=== PATIENT | female | born 1960 | race Caucasian/White ===

== ENCOUNTER → 2016-12-10 | Outpatient (CLI) | payer MEDICARE, MEDICAID ==
--- NOTE | 2016-12-10 11:08 | RADIOLOGY REPORT (SQ) ---
EXAM DESCRIPTION: CHEST PA/LATERAL COMPLETED DATE/TIME: 12/10/2016 10:52 am REASON FOR STUDY: OTH SYMPTOMS AND SIGNS INVOLVING THE CIRC AND RESP SYSTEMS R09.89 OTH SYMPTOMS AN D SIGNS INVOLVING THE CIRC AND RESP SY COMPARISON: 12/07/2015 NUMBER OF VIEWS: Two view. TECHNIQUE: Frontal and lateral radiographic views of the chest acquired. LIMITATIONS: None. FINDINGS: LUNGS AND PLEURA: Low lung volumes. No opacities, masses or pneumothorax. No pleural eff usion. MEDIASTINUM AND HILAR STRUCTURES: No masses. No contour abnormalities. HEART AND VASCULAR STRUCTURES: Heart normal in size and contour. No evidence for failure. BONES: No acute findings. HARDWARE: None in the chest. OTHER: No other significant finding. IMPRESSION: LOW LUNG VOLUMES. No acute findings. No significant change since 12/07/2015. . TECHNICAL DOCUMENTATION: JOB ID: [id number] [employer]- All Rights Reserved
== END ==
LOC: OD 10:34
PROVIDERS: ATTEND Family Medicine
DX: R09.89 Other specified symptoms and signs involving the circulatory and respiratory systems (principal)
CPT/HCPCS: 71020

== ENCOUNTER → 2017-09-14 | Outpatient (CLI) | payer MEDICARE, MEDICAID ==
[2017-09-14 14:58] LABS: ABSOLUTE EOSINOPHILS # (AUTO) 0.1 10^3/uL (0.0-0.6); ABSOLUTE LYMPHOCYTES (AUTO) 2.1 10^3/uL (0.5-4.7); ABSOLUTE MONOCYTES (AUTO) 0.7 10^3/uL (0.1-1.4); BASOPHILS % (AUTO) 0.2 % (0-2); EOSINOPHILS % (AUTO) 0.8 % (0-6); HEMATOCRIT 38.8 % (36.0-47.0); HEMOGLOBIN 13.6 g/dL (12.0-15.5); LYMPHOCYTES % (AUTO) 30.1 % (13-45); MEAN CORPUSCULAR HEMOGLOBIN 30.8 pg (27.0-33.4); MEAN CORPUSCULAR VOLUME 88 fl (80-97); MONOCYTES % (AUTO) 9.8 % (3-13); PLATELET COUNT 220 10^3/uL (150-450); RED CELL DISTRIBUTION WIDTH 13.2 % (11.5-14.0); SEGMENTED NEUTROPHILS % (AUTO) 59.1 % (42-78); TOTAL CELLS COUNTED % (AUTO) 100 %; WHITE BLOOD COUNT 6.8 10^3/uL (4.0-10.5)
[2017-09-14 15:40] LABS: ANION GAP 10 (5-19); BLOOD UREA NITROGEN 13 mg/dL (7-20); CALCIUM 9.6 mg/dL (8.4-10.2); CARBON DIOXIDE 30 mmol/L (22-30); CHLORIDE 104 mmol/L (98-107); GLUCOSE 99 mg/dL (75-110); POTASSIUM 4.5 mmol/L (3.6-5.0); SODIUM 143.6 mmol/L (137-145)
--- NOTE | 2017-09-14 15:44 | RADIOLOGY REPORT (SQ) ---
EXAM DESCRIPTION: CHEST 2 VIEWS COMPLETED DATE/TIME: 09/14/2017 3:17 pm REASON FOR STUDY: COUGH, FEBRILE ILLNESS, ANOXIC BRAIN INJURY G93.1 ANOXIC BRAIN DAMAGE, NOT ELSEWH ERE CLASSIFIED R05 COUGH R50.9 FEVER, UNSPECIFIED COMPARISON: 2015. NUMBER OF VIEWS: Two view. TECHNIQUE: Frontal and lateral radiographic views of the chest acquired. LIMITATIONS: None. FINDINGS: LUNGS AND PLEURA: Low lung volumes. No opacities, masses or pneumothorax. No pleural eff usion. MEDIASTINUM AND HILAR STRUCTURES: No masses. No contour abnormalities. HEART AND VASCULAR STRUCTURES: Heart normal in size and contour. No evidence for failure. BONES: No acute findings. HARDWARE: None in the chest. OTHER: No other significant finding. IMPRESSION: LOW LUNG VOLUMES. NO SIGNIFICANT RADIOGRAPHIC FINDING IN THE CHEST. TECHNICAL DOCUMENTATION: JOB ID: [id number] [employer]- All Rights Reserved Reading location - IP/workstation name: [email or web address]
== END ==
LOC: LAB 14:43
PROVIDERS: ATTEND Emergency Medicine
DX: G93.1 Anoxic brain damage, not elsewhere classified (principal); R05 Cough; R50.9 Fever, unspecified
CPT/HCPCS: 36415; 71046; 80048; 85025

== ENCOUNTER 2017-11-07 20:12 | Emergency (ER) | payer MEDICARE, MEDICAID ==
[2017-11-07 20:50] VITALS: BP 106/70
--- NOTE | 2017-11-07 21:06 | RADIOLOGY REPORT (SQ) ---
EXAM DESCRIPTION: CHEST 2 VIEWS COMPLETED DATE/TIME: 11/07/2017 8:55 pm REASON FOR STUDY: cough, small amt blood COMPARISON: 09/14/2017 EXAM PARAMETERS: NUMBER OF VIEWS: two views TECHNIQUE: Digital Frontal and Lateral radiographic views of the chest acquired. RADIATION DOSE: NA LIMITATIONS: none FINDINGS: LUNGS AND PLEURA: No opacities, masses or pneumothorax. No pleural effusion. MEDIASTINUM AND HILAR STRUCTURES: No masses or contour abnormalities. HEART AND VASCULAR STRUCTURES: Heart normal size. No evidence for failure. BONES: No acute findings. HARDWARE: None in the chest. OTHER: No other significant finding. IMPRESSION: NO ACUTE RADIOGRAPHIC FINDING IN THE CHEST. TECHNICAL DOCUMENTATION: JOB ID: [id number] [employer]- All Rights Reserved Reading location - IP/workstation name: [email or web address]
--- NOTE | 2017-11-07 21:36 | ER Document Report ---
ED General - General Mode of Arrival: Wheelchair Information source: Patient TRAVEL OUTSIDE OF THE [place]. IN LAST 30 DAYS: No <OMERO ERVIN - Last Filed: 11/07/17 21:27> <LALA MAHARAJ - Last Filed: 11/07/17 23:15> - General Chief Complaint: Cough Stated Complaint: COUGHING UP BLOOD Time Seen by Provider: 11/07/17 21:23 Notes: 57 y.o female with HTN, type 2 DM and a PSHx of PEG tube placement presents to the ED with a cough of onset yesterday. Relative at bedside reports that today the pt started coughing blood while she was with her home health nurse who reported that it looked like a small clot. He denies any known fevers or any other sx. Pt also has a PMHx of anoxic brain injury in 2013 after a suicide attempt. ( OMERO ERVIN) - Related Data Allergies/Adverse Reactions: epinephrine [Epinephrine] Allergy (Verified 01/15/16 14:21) "throat closes up" Penicillins Allergy (Verified 01/15/16 14:20) Sulfa (Sulfonamide Antibiotics) Allergy (Verified 04/22/14 11:31) Past Medical History - General Information source: Patient - Social History Smoking Status: Never Smoker Chew tobacco use (# tins/day): No Frequency of alcohol use: None Drug Abuse: None Family History: Reviewed & Not Pertinent Patient has suicidal ideation: No Patient has homicidal ideation: No - Past Medical History Cardiac Medical History: Reports: Hx Hypertension Endocrine Medical History: Reports: Hx Diabetes Mellitus Type 2 Renal/ Medical History: Denies: Hx Peritoneal Dialysis Past Surgical History: Reports: Hx Abdominal Surgery - Immunizations Hx Diphtheria, Pertussis, Tetanus Vaccination: Yes <OMERO ERVIN - Last Filed: 11/07/17 21:27> Review of Systems - Review of Systems Constitutional: See HPI. denies: Fever EENT: No symptoms reported Cardiovascular: No symptoms reported Respiratory: See HPI, Cough, Other - blood in cough Gastrointestinal: No symptoms reported Genitourinary: No symptoms reported Female Genitourinary: No symptoms reported Musculoskeletal: No symptoms reported Skin: No symptoms reported Hematologic/Lymphatic: No symptoms reported Neurological/Psychological: No symptoms reported -: Yes All other systems reviewed and negative <OMERO ERVIN - Last Filed: 11/07/17 21:27> Physical Exam <OMERO ERVIN - Last Filed: 11/07/17 21:27> <LALA MAHARAJ - Last Filed: 11/07/17 23:15> - Vital signs Vitals: Pulse Resp BP Pulse Ox 67 19 106/70 95 11/07/17 20:23 11/07/17 20:23 11/07/17 20:23 11/07/17 20:23 - Notes Notes: Physical Exam: General: Alert, appears well. HEENT: Normocephalic. Atraumatic. PERRL. Extraocular movements intact. Oropharynx clear. Neck: Supple. Non-tender. Respiratory: No respiratory distress. Equal breath sounds bilaterally. Some rhonchi auscultated. Cardiovascular: Regular rate and rhythm. Abdominal: Normal Inspection. Non-tender. No distension. Normal Bowel Sounds. Back: Non-tender. No deformity or step off. Extremities: Moves all four extremities. Upper extremities: extension contractures at the fingers. Normal ROM. Lower extremities: Extension of lower extremities. No edema. Normal ROM. Neurological: Able to follow commands. could breath on command but was not able to cough well on command. Psychological: Normal affect. Normal Mood. Skin: Warm. Dry. Normal color. (OMERO ERVIN) Course - Laboratory Result Diagrams: 11/07/17 22:10 11/07/17 22:10 - Diagnostic Test Radiology reviewed: Image reviewed, Reports reviewed - Chest x-ray does not show any acute process. <LALA MAHARAJ - Last Filed: 11/07/17 23:15> - Vital Signs Vital signs: Temp Pulse Resp BP Pulse Ox 67 19 106/70 95 11/07/17 20:23 11/07/17 20:23 11/07/17 20:23 11/07/17 20:23 - Laboratory Laboratory results interpreted by me: 11/07/17 22:10 Creatinine 0.46 L AST 53 H ALT 90 H Discharge <OMEOR ERVIN - Last Filed: 11/07/17 21:27> <LALA MAHARAJ - Last Filed: 11/07/17 23:15> - Discharge Clinical Impression: Hemoptysis, Bronchitis Condition: Stable Disposition: HOME, SELF-CARE Additional Instructions: Bronchitis You have acute bronchitis. This disease is an infection or inflammation of the air passageways in your lungs. Symptoms usually include cough, low grade fever, shortness of breath, and wheezing. The cough usually persists for a couple of weeks. Most cases of bronchitis get better without antibiotics. We prescribe antibiotics when we believe bacteria are damaging your airways, or if there's high risk the bronchitis will worsen into pneumonia. Increase your fluid intake. A cool mist humidifier may make your lungs more comfortable. An expectorant (cough medicine that loosens phlegm) can help. Recovery from bronchitis can be somewhat slow, but you should see improvement within a day or two. Repeated episodes of bronchitis may result in lung damage -- for example, chronic bronchitis, recurrent pneumonias, or emphysema. Call the doctor if you develop increasing fever, shortness of breath, chest pain, bloody sputum, or otherwise worsen. If you have not improved at all after several days, contact the physician. Hemoptysis: Hemoptysis (coughing up blood) can occur with many different diseases. Most commonly, it's due to an infection such as bronchitis. Although alarming, the presence of blood in the phlegm doesn't change the treatment of bronchitis or pneumonia. The physician has evaluated you to see if there is evidence of an underlying problem requiring further evaluation. If he has recommended further tests, you should follow up as instructed. Hemoptysis without an identifiable cause can be due to tumors or hidden infections. Return for a recheck if the blood increases greatly in amount, or if you develop shortness of breath, high fever, severe chest pain, or other alarming new symptoms. Give the Zithromax as prescribed once daily for the next 2 days. Try Robitussin-DM to help suppress your cough. Follow up with your doctor if not improving. RETURN TO THE EMERGENCY ROOM IF ANY NEW OR WORSENING SYMPTOMS. Prescriptions: Azithromycin [Zithromax 200 mg/5 mL Susp] 12.5 ml PEG DAILY #25 ml Referrals: LENA YAÑEZ DO [Primary Care Provider] - Follow up as needed Scribe Attestation: 11/07/17 21:54 I personally performed the services described in the documentation, reviewed and edited the documentation which was dictated to the scribe in my presence, and it accurately records my words and actions. (LALA MAHARAJ) Scribe Documentation - Scribe Written by Jose Francisco:: Jose Francisco Jett [id number] acting as scribe for :: Lex <OMERO ERVIN - Last Filed: 11/07/17 21:27>
[2017-11-07 22:31] LABS: ABSOLUTE EOSINOPHILS # (AUTO) 0.1 10^3/uL (0.0-0.6); ABSOLUTE LYMPHOCYTES (AUTO) 2.3 10^3/uL (0.5-4.7); ABSOLUTE MONOCYTES (AUTO) 0.4 10^3/uL (0.1-1.4); ABSOLUTE NEUT (AUTO) 3.3 10^3/uL (1.7-8.2); BASOPHILS % (AUTO) 0.3 % (0-2); EOSINOPHILS % (AUTO) 2.3 % (0-6); HEMATOCRIT 41.7 % (36.0-47.0); HEMOGLOBIN 14.5 g/dL (12.0-15.5); LYMPHOCYTES % (AUTO) 37.2 % (13-45); MEAN CORPUSCULAR HEMOGLOBIN 31.1 pg (27.0-33.4); MEAN CORPUSCULAR HGB CONC 34.9 g/dL (32.0-36.0); MEAN CORPUSCULAR VOLUME 89 fl (80-97); PLATELET COUNT 302 10^3/uL (150-450); RED BLOOD COUNT 4.68 10^6/uL (3.72-5.28); RED CELL DISTRIBUTION WIDTH 13.2 % (11.5-14.0); SEGMENTED NEUTROPHILS % (AUTO) 53.2 % (42-78); TOTAL CELLS COUNTED % (AUTO) 100 %; WHITE BLOOD COUNT 6.3 10^3/uL (4.0-10.5)
[2017-11-07 22:50] LABS: ALANINE AMINOTRANSFERASE 90 U/L (9-52); ALBUMIN 3.8 g/dL (3.5-5.0); ALKALINE PHOSPHATASE 87 U/L (38-126); ANION GAP 9 (5-19); ASPARTATE AMINO TRANSFERASE 53 U/L (14-36); BILIRUBIN,DIRECT 0.2 mg/dL (0.0-0.4); BILIRUBIN,TOTAL 0.5 mg/dL (0.2-1.3); BLOOD UREA NITROGEN 16 mg/dL (7-20); CALCIUM 9.6 mg/dL (8.4-10.2); CARBON DIOXIDE 30 mmol/L (22-30); CHLORIDE 102 mmol/L (98-107); GLUCOSE 87 mg/dL (75-110); POTASSIUM 4.3 mmol/L (3.6-5.0); SODIUM 140.8 mmol/L (137-145); TOTAL PROTEIN 6.7 g/dL (6.3-8.2)
[2017-11-07] MEDS ORDERED: AZITHROMYCIN 200 MG/5 ML SUSP 30 ML (ER DISP) PO SCH ×2 (23:00→23:06)
== END 2017-11-07 23:40 | disposition home or self-care (01) ==
LOC: ER 20:12
DX: J40 Bronchitis, not specified as acute or chronic (principal); R04.2 Hemoptysis; I10 Essential (primary) hypertension; E11.9 Type 2 diabetes mellitus without complications; G93.1 Anoxic brain damage, not elsewhere classified; Z88.8 Allergy status to other drugs, medicaments and biological substances; Z88.0 Allergy status to penicillin; Z88.2 Allergy status to sulfonamides
CPT/HCPCS: 99284; 36415; 85025; 80053; 71046; J3490

== ENCOUNTER → 2017-11-14 | Outpatient (CLI) | payer MEDICARE, MEDICAID ==
--- NOTE | 2017-11-14 10:48 | WOMENS IMAGING REPORT ---
EXAM DESCRIPTION: BILAT SCREENING MAMMO W/CAD COMPLETED DATE/TIME: 11/14/2017 9:59 am REASON FOR STUDY: ROUTINE SCREENING MAMMOGRAM Z12.31 Z12.31 ENCNTR SCREEN MAMMOGRAM FOR MALIGNANT N EOPLASM OF ALEXANDER COMPARISON: 2012, 2015 TECHNIQUE: Standard mediolateral oblique views of each breast recorded using digital acquisition. M LO views could not be obtained due to comorbidities. LIMITATIONS: See above. FINDINGS: No masses, calcifications or architectural distortion. No areas of suspicion. Read with the assistance of CAD. [facility] R2 [employer] Version 1.3 .[facility] Imaging - R2 Cenova Version 1.3 .[facility] Imaging - R2 Cenova Version 2.4 .[facility] [place] Cenova Version 2.4 .[facility] - R2 [employer] Version 9.2 IMPRESSION: NORMAL MAMMOGRAM. BIRADS 1. BREAST DENSITY: b. There are scattered areas of fibroglandular density. BIRAD: 1 NEGATIVE RECOMMENDATION: ROUTINE SCREENING COMMENT: The patient has been notified of the results by letter per MQSA requirements. Additional no tification policies are in place for contacting patient with suspicious or incomplete findings. Quality ID #[id number]: [employer] [place] [employer] recommends an annual screening mammogram for women aged 40 years or over. This facility utilizes a reminder system to ensure that all patients receive reminder letters, and/or direct phone calls for appointments. This includes reminders for routine scr eening mammograms, diagnostic mammograms, or other Breast Imaging Interventions when appropriate. Th is patient will be placed in the appropriate reminder system. The [employer] [place] [employer] (ACR) has developed recommendations for screening MRI of the breast s in certain patient populations, to be used in conjunction with mammography. Breast MRI surveillanc e may be appropriate for women with more than 20% lifetime risk of developing breast cancer as deter mined by genetic testing, significant family history of the disease, or history of mantle radiation f or Hodgkins Disease. ACR Practice Guidelines 2008. TECHNICAL DOCUMENTATION: FINDING NUMBER: (1) ASSESSMENT: (1) JOB ID: [id number] [employer]- All Rights Reserved Reading location - IP/workstation name: [email or web address]
== END ==
LOC: WI 09:40
PROVIDERS: ATTEND Family Medicine
DX: Z12.31 Encounter for screening mammogram for malignant neoplasm of breast (principal)
CPT/HCPCS: 77067

== ENCOUNTER → 2018-01-31 | Outpatient (CLI) | payer MEDICARE | LOC: LAB 14:54 | PROVIDERS: ATTEND Nurse Practitioner Family | DX: R35.0 Frequency of micturition (principal) | CPT/HCPCS: 87086; 87088; 87186 ==

== ENCOUNTER → 2018-11-25 | Outpatient (CLI) | payer MEDICAID, MEDICARE ==
--- NOTE | 2018-11-25 17:03 | WOMENS IMAGING REPORT ---
EXAM DESCRIPTION: U/S BREAST UNILATERAL, COMPL COMPLETED DATE/TIME: 11/25/2018 1:40 pm REASON FOR STUDY: Z12.31 ENCOUNTER FOR SCREENING MAMMOGRAM FOR MALIGNANT NEOPLASM OF BREAST Z12.31 ENCNTR SCREEN MAMMOGRAM FOR MALIGNANT NEOPLASM OF ALEXANDER COMPARISON: None TECHNIQUE: Static and Realtime grayscale interrogation of the entire right and left breast(s) acquir ed. Selected color doppler/spectral images saved to PACS. LIMITATIONS: None. FINDINGS: Masses:No cystic or solid masses identified Architecture:No alteration of normal morphology. No skin thickening. No edema. Other: None. IMPRESSION: No suspicious findings detected by ultrasound. BIRAD: 1 Negative. RECOMMENDATION: RECOMMENDED FOLLOW-UP: Yearly screening is appropriate. Note: Screening ultrasound does not completely replace standard screening mammography. These modalities are complementary, not fully interchangeable. COMMENT: PATIENT NOTIFIED BY LETTER. [employer], [place] [employer], and [place] [employer] recommend an annual screening mammogram for women aged 40 years or over. Each patient will recei ve a reminder prior to the anniversary date of her mammogram. TECHNICAL DOCUMENTATION: FINDING NUMBER: (1) ASSESSMENT: (1) JOB ID: [id number] [employer]- All Rights Reserved Reading location - IP/workstation name: [email or web address]
--- NOTE | 2018-11-25 17:03 | WOMENS IMAGING REPORT ---
EXAM DESCRIPTION: U/S BREAST UNILATERAL, COMPL COMPLETED DATE/TIME: 11/25/2018 1:40 pm REASON FOR STUDY: Z12.31 ENCOUNTER FOR SCREENING MAMMOGRAM FOR MALIGNANT NEOPLASM OF BREAST Z12.31 ENCNTR SCREEN MAMMOGRAM FOR MALIGNANT NEOPLASM OF ALEXANDER COMPARISON: None TECHNIQUE: Static and Realtime grayscale interrogation of the entire right and left breast(s) acquir ed. Selected color doppler/spectral images saved to PACS. LIMITATIONS: None. FINDINGS: Masses:No cystic or solid masses identified Architecture:No alteration of normal morphology. No skin thickening. No edema. Other: None. IMPRESSION: No suspicious findings detected by ultrasound. BIRAD: 1 Negative. RECOMMENDATION: RECOMMENDED FOLLOW-UP: Yearly screening is appropriate. Note: Screening ultrasound does not completely replace standard screening mammography. These modalities are complementary, not fully interchangeable. COMMENT: PATIENT NOTIFIED BY LETTER. [employer], [place] [employer], and [place] [employer] recommend an annual screening mammogram for women aged 40 years or over. Each patient will recei ve a reminder prior to the anniversary date of her mammogram. TECHNICAL DOCUMENTATION: FINDING NUMBER: (1) ASSESSMENT: (1) JOB ID: [id number] [employer]- All Rights Reserved Reading location - IP/workstation name: [email or web address]
== END ==
LOC: WI 13:13
PROVIDERS: ATTEND Family Medicine
DX: Z12.31 Encounter for screening mammogram for malignant neoplasm of breast (principal)
CPT/HCPCS: 76641

== ENCOUNTER 2019-04-26 18:52 | Emergency (ER) | payer MEDICARE, MEDICAID ==
[2019-04-26 19:26] VITALS: BP 121/80
--- NOTE | 2019-04-26 19:46 | ER Document Report ---
ED Medical Screen (RME) - General Chief Complaint: Cough Stated Complaint: CONGESTION,COUGH,FEVER Time Seen by Provider: 04/26/19 19:39 Primary Care Provider: MARYAM KEYES MD [Primary Care Provider] - Follow up as needed Notes: HPI: History is obtained from the family member, patient with history of anoxic brain injury. Began having cough and fever over the last 2 to 3 days. Patient was exposed to other caregivers who had upper respiratory symptoms. Patient did get a flu shot this year. Patient feeds with a G-tube. No vomiting I have greeted and performed a rapid initial assessment of this patient. A comprehensive ED assessment and evaluation of the patient, analysis of test results and completion of the medical decision making process will be conducted by additional ED providers PHYSICAL EXAMINATION: GENERAL: Chronically ill-appearing, well-nourished and in no acute distress. HEAD: Atraumatic, normocephalic. EYES: sclera anicteric, conjunctiva are normal. ENT: Moist mucous membranes. NECK: Normal range of motion LUNGS: Normal work of breathing, lung sounds clear to auscultation HEART: 2+ radial pulses bilaterally, regular rate and rhythm ABD: limited by positioning for exam in triage. G-tube present EXTREMITIES: no pitting or edema. No cyanosis. NEUROLOGICAL: Nonverbal, does not follow commands PSYCH: Nonverbal SKIN: Warm, Dry, normal turgor, no rashes or lesions noted. TRAVEL OUTSIDE OF THE [place] IN LAST 30 DAYS: No - Related Data Allergies/Adverse Reactions: epinephrine [Epinephrine] Allergy (Verified 04/26/19 19:38) "throat closes up" Penicillins Allergy (Verified 04/26/19 19:38) Sulfa (Sulfonamide Antibiotics) Allergy (Verified 04/26/19 19:38) Home Medications: Resteril. Prozac 20. Baclofen 5mg BID Past Medical History - Past Medical History Cardiac Medical History: Reports: Hx Hypertension Denies: Hx Heart Attack Pulmonary Medical History: Denies: Hx Asthma, Hx Bronchitis, Hx COPD, Hx Pneumonia Neurological Medical History: Denies: Hx Seizures Endocrine Medical History: Reports: Hx Diabetes Mellitus Type 2 Renal/ Medical History: Denies: Hx Peritoneal Dialysis Musculoskeltal Medical History: Denies Hx Arthritis Infectious Medical History: Past Surgical History: Reports: Hx Abdominal Surgery. Denies: Hx Hysterectomy - Immunizations Hx Diphtheria, Pertussis, Tetanus Vaccination: Yes Physical Exam - Vital signs Vitals: Temp Pulse Resp BP Pulse Ox 99.5 F 89 22 H 121/80 95 04/26/19 19:25 04/26/19 19:25 04/26/19 19:25 04/26/19 19:25 04/26/19 19:25 Course - Vital Signs Vital signs: Temp Pulse Resp BP Pulse Ox 99.5 F 89 22 H 121/80 95 04/26/19 19:25 04/26/19 19:25 04/26/19 19:25 04/26/19 19:25 04/26/19 19:25 Doctor's Discharge - Discharge Referrals: MARYAM KEYES MD [Primary Care Provider] - Follow up as needed
== END 2019-04-26 19:48 | disposition left against medical advice (07) ==
LOC: ER 18:52
DX: R05 Cough (principal); R50.9 Fever, unspecified; I10 Essential (primary) hypertension; E11.9 Type 2 diabetes mellitus without complications; Z88.0 Allergy status to penicillin; Z88.2 Allergy status to sulfonamides; Z93.1 Gastrostomy status
CPT/HCPCS: 99281

== ENCOUNTER 2019-04-27 17:18 | Emergency (ER) | payer MEDICAID, MEDICARE ==
[2019-04-27 17:45] VITALS: BP 120/59
--- NOTE | 2019-04-27 18:06 | ER Document Report ---
ED Medical Screen (RME) - General Chief Complaint: Cough Stated Complaint: COUGH/CONGESTION/FEVER Time Seen by Provider: 04/27/19 17:58 Primary Care Provider: MARYAM KEYES MD [Primary Care Provider] - Follow up as needed Notes: HPI: History is obtained from the . A 59-year-old female with history of anoxic brain injury brought for continued coughing with several episodes of posttussive vomiting today. Patient feeds with a J-tube secondary to the anoxic brain injury. Had fever upper respiratory symptoms over the last 2 to 3 days. Patient was evaluated last night but they were unable to stay for the evaluation so they returned today with continued symptoms. Patient recently had exposure to caregivers who had upper respiratory symptoms or flu I have greeted and performed a rapid initial assessment of this patient. A comprehensive ED assessment and evaluation of the patient, analysis of test results and completion of the medical decision making process will be conducted by additional ED providers PHYSICAL EXAMINATION: GENERAL: Chronically ill -appearing, well-nourished and in no acute distress. HEAD: Atraumatic, normocephalic. EYES: sclera anicteric, conjunctiva are normal. ENT: Moist mucous membranes. NECK: Nontender LUNGS: Normal work of breathing, lung sounds clear to auscultation HEART: 2+ radial pulses bilaterally, regular rate and rhythm ABD: limited by positioning for exam in triage. G-tube present EXTREMITIES: no pitting or edema. No cyanosis. NEUROLOGICAL: Nonverbal PSYCH: Nonverbal SKIN: Warm, Dry, normal turgor, no rashes or lesions noted. TRAVEL OUTSIDE OF THE [place] IN LAST 30 DAYS: No - Related Data Allergies/Adverse Reactions: epinephrine [Epinephrine] Allergy (Verified 04/26/19 19:38) "throat closes up" Penicillins Allergy (Verified 04/26/19 19:38) Sulfa (Sulfonamide Antibiotics) Allergy (Verified 04/26/19 19:38) Past Medical History - Past Medical History Cardiac Medical History: Reports: Hx Hypertension Denies: Hx Heart Attack Pulmonary Medical History: Denies: Hx Asthma, Hx Bronchitis, Hx COPD, Hx Pneumonia Neurological Medical History: Denies: Hx Seizures Endocrine Medical History: Reports: Hx Diabetes Mellitus Type 2 Renal/ Medical History: Denies: Hx Peritoneal Dialysis Musculoskeltal Medical History: Denies Hx Arthritis Infectious Medical History: Past Surgical History: Reports: Hx Abdominal Surgery. Denies: Hx Hysterectomy - Immunizations Hx Diphtheria, Pertussis, Tetanus Vaccination: Yes Physical Exam - Vital signs Vitals: Temp Pulse Resp BP Pulse Ox 98.2 F 57 L 16 120/59 L 100 04/27/19 17:43 04/27/19 17:43 04/27/19 17:43 04/27/19 17:43 04/27/19 17:43 Course - Vital Signs Vital signs: Temp Pulse Resp BP Pulse Ox 98.2 F 57 L 16 120/59 L 100 04/27/19 17:43 04/27/19 17:43 04/27/19 17:43 04/27/19 17:43 04/27/19 17:43 Doctor's Discharge - Discharge Referrals: MARYAM KEYES MD [Primary Care Provider] - Follow up as needed
--- NOTE | 2019-04-27 19:29 | RADIOLOGY REPORT (SQ) ---
EXAM DESCRIPTION: CHEST SINGLE VIEW COMPLETED DATE/TIME: 04/27/2019 7:10 pm REASON FOR STUDY: cough COMPARISON: Two-view chest 09/14/2017 EXAM PARAMETERS: NUMBER OF VIEWS: One view. TECHNIQUE: Single frontal radiographic view of the chest acquired. RADIATION DOSE: NA LIMITATIONS: None. FINDINGS: LUNGS AND PLEURA: No opacities, masses or pneumothorax. No pleural effusion. MEDIASTINUM AND HILAR STRUCTURES: No masses. Contour normal. HEART AND VASCULAR STRUCTURES: Heart normal in size. Normal vasculature. BONES: No acute findings. HARDWARE: None in the chest. OTHER: No other significant finding. IMPRESSION: NO ACUTE RADIOGRAPHIC FINDING IN THE CHEST. TECHNICAL DOCUMENTATION: JOB ID: [id number] [email or web address]- All Rights Reserved Reading location - IP/workstation name: [email or web address]
[2019-04-27 19:40] LABS: ABSOLUTE EOSINOPHILS # (AUTO) 0.2 10^3/uL (0.0-0.6); ABSOLUTE LYMPHOCYTES (AUTO) 2.1 10^3/uL (0.5-4.7); ABSOLUTE MONOCYTES (AUTO) 0.5 10^3/uL (0.1-1.4); ABSOLUTE NEUT (AUTO) 3.3 10^3/uL (1.7-8.2); BASOPHILS % (AUTO) 0.4 % (0-2); EOSINOPHILS % (AUTO) 3.3 % (0-6); HEMATOCRIT 40.3 % (36.0-47.0); LYMPHOCYTES % (AUTO) 34.1 % (13-45); MEAN CORPUSCULAR HEMOGLOBIN 31.5 pg (27.0-33.4); MEAN CORPUSCULAR HGB CONC 34.7 g/dL (32.0-36.0); MEAN CORPUSCULAR VOLUME 91 fl (80-97); MONOCYTES % (AUTO) 7.8 % (3-13); PLATELET COUNT 237 10^3/uL (150-450); RED BLOOD COUNT 4.45 10^6/uL (3.72-5.28); RED CELL DISTRIBUTION WIDTH 13.3 % (11.5-14.0); SEGMENTED NEUTROPHILS % (AUTO) 54.4 % (42-78); TOTAL CELLS COUNTED % (AUTO) 100 %
[2019-04-27 19:55] LABS: ALBUMIN 3.9 g/dL (3.5-5.0); ALKALINE PHOSPHATASE 93 U/L (38-126); ANION GAP 10 (5-19); ASPARTATE AMINO TRANSFERASE 24 U/L (14-36); BILIRUBIN,DIRECT 0.1 mg/dL (0.0-0.4); BILIRUBIN,TOTAL 0.4 mg/dL (0.2-1.3); BLOOD UREA NITROGEN 17 mg/dL (7-20); CALCIUM 9.9 mg/dL (8.4-10.2); CARBON DIOXIDE 31 mmol/L (22-30); CHLORIDE 97 mmol/L (98-107); GLUCOSE 115 mg/dL (75-110); POTASSIUM 4.3 mmol/L (3.6-5.0); TOTAL PROTEIN 6.9 g/dL (6.3-8.2)
[2019-04-27 20:03] LABS: A TYPE INFLUENZA AG NEGATIVE (NEGATIVE); B INFLUENZA AG NEGATIVE (NEGATIVE)
== END 2019-04-28 02:17 | disposition left against medical advice (07) ==
LOC: ER 17:18
DX: R05 Cough (principal); R11.10 Vomiting, unspecified; R50.9 Fever, unspecified; I10 Essential (primary) hypertension; E11.9 Type 2 diabetes mellitus without complications; G93.1 Anoxic brain damage, not elsewhere classified; Z88.8 Allergy status to other drugs, medicaments and biological substances; Z88.0 Allergy status to penicillin; Z88.2 Allergy status to sulfonamides; Z53.20 Procedure and treatment not carried out because of patient's decision for unspecified reasons
CPT/HCPCS: 36415; 71045; 80053; 85025; 87040; 87804; 99281

== ENCOUNTER 2019-10-23 09:19 | Emergency (ER) | payer MEDICARE, MEDICAID ==
--- NOTE | 2019-10-23 10:38 | ER Document Report ---
ED Medical Screen (RME) - General Stated Complaint: PEG TUBE ISSUES Time Seen by Provider: 10/23/19 10:35 Primary Care Provider: MARYAM KEYES MD [Primary Care Provider] - Follow up as needed Notes: HPI: 59-year-old female brought for evaluation of PEG tube difficulty. The caregiver states that when he came to see the patient this morning the PEG tube was out and laying beside her. States that it looked like the balloon had burst. This was placed approximately a week ago by Dr. Stahl. States it is a size 18. He did insert it back in place to hold the track and taped it down then brought her for evaluation PHYSICAL EXAMINATION: There is a PEG tube present in the mid abdomen I have greeted and performed a rapid initial assessment of this patient. A comprehensive ED assessment and evaluation of the patient, analysis of test results and completion of medical decision making process will be conducted by an additional ED providers. TRAVEL OUTSIDE OF THE [place] IN LAST 30 DAYS: No - Related Data Allergies/Adverse Reactions: epinephrine [Epinephrine] Allergy (Verified 10/23/19 10:33) "throat closes up" Penicillins Allergy (Verified 10/23/19 10:33) Sulfa (Sulfonamide Antibiotics) Allergy (Verified 10/23/19 10:33) Past Medical History - Past Medical History Cardiac Medical History: Reports: Hx Hypertension Denies: Hx Heart Attack Pulmonary Medical History: Denies: Hx Asthma, Hx Bronchitis, Hx COPD, Hx Pneumonia Neurological Medical History: Denies: Hx Seizures Endocrine Medical History: Reports: Hx Diabetes Mellitus Type 2 Renal/ Medical History: Denies: Hx Peritoneal Dialysis Musculoskeltal Medical History: Denies Hx Arthritis Infectious Medical History: Past Surgical History: Reports: Hx Abdominal Surgery. Denies: Hx Hysterectomy - Immunizations Hx Diphtheria, Pertussis, Tetanus Vaccination: Yes Physical Exam - Vital signs Vitals: Temp Pulse Resp BP Pulse Ox 97.8 F 67 18 102/61 100 10/23/19 09:23 10/23/19 09:23 10/23/19 09:23 10/23/19 09:23 10/23/19 09:23 Course - Vital Signs Vital signs: Temp Pulse Resp BP Pulse Ox 97.8 F 67 18 102/61 100 10/23/19 09:23 10/23/19 09:23 10/23/19 09:23 10/23/19 09:23 10/23/19 09:23 Doctor's Discharge - Discharge Referrals: MARYAM KEYES MD [Primary Care Provider] - Follow up as needed
[2019-10-23] MEDS ORDERED: LIDOCAINE 2% URO-JET 5 ML KIT MM ONE (14:02)
--- NOTE | 2019-10-23 14:16 | ER Document Report ---
Entered by LARRY WEBSTER SCRIBE 10/23/19 1402 Acting as scribe for:LALA MAHARAJ MD ED GI/ - General Chief Complaint: Problem with Feeding Tube Stated Complaint: PEG TUBE ISSUES Time Seen by Provider: 10/23/19 10:35 Primary Care Provider: SEVERINO VILLAGRAN MD [ACTIVE STAFF] - Follow up as needed MARYAM KEYES MD [Primary Care Provider] - Follow up as needed Mode of Arrival: Ambulatory Information source: Patient Notes: This 59 year old female patient with anoxic brain injury presents today after her feeding tube became dislodged prior to arrival. was able to re- insert the PEG tube but the balloon is not able to be inflated so the tube needs to be replaced. states it was last changed one week ago. The PEG tube is a 20 polish right angle. TRAVEL OUTSIDE OF THE [place] IN LAST 30 DAYS: No - Related Data Allergies/Adverse Reactions: epinephrine [Epinephrine] Allergy (Verified 10/23/19 10:33) "throat closes up" Penicillins Allergy (Verified 10/23/19 10:33) Sulfa (Sulfonamide Antibiotics) Allergy (Verified 10/23/19 10:33) Past Medical History - General Information source: Patient - Social History Smoking Status: Never Smoker Cigarette use (# per day): No Lives with: Spouse/Significant other Family History: Reviewed & Not Pertinent Patient has homicidal ideation: No - Past Medical History Cardiac Medical History: Reports: Hx Hypertension Neurological Medical History: Reports: Other - Anoxic brain injury Endocrine Medical History: Reports: Hx Diabetes Mellitus Type 2 Infectious Medical History: Past Surgical History: Reports: Hx Abdominal Surgery - PEG tube - Immunizations Hx Diphtheria, Pertussis, Tetanus Vaccination: Yes Review of Systems - Review of Systems -: Yes ROS unobtainable due to patient's medical condition Physical Exam - Vital signs Vitals: Temp Pulse Resp BP Pulse Ox 97.8 F 67 18 102/61 100 10/23/19 09:23 10/23/19 09:23 10/23/19 09:23 10/23/19 09:23 10/23/19 09:23 - Notes Notes: Physical Exam: General: Alert. Sitting in wheelchair, non-verbal. HEENT: Normocephalic. Atraumatic. PERRLA. Extraocular movements intact. Oropharynx clear. Neck: Supple. Respiratory: No respiratory distress. Rhonchi with forced cough bilaterally. Abdominal: PEG tube. No distension. Extremities: Extension contractures of bilateral hands. Wheelchair bound. Neurological: Cognition at baseline. Skin: Warm. Dry. Normal color. Course - Re-evaluation Re-evalutation: 10/23/19 14:16 PROCEDURE: The PEG tube in place was withdrawn, the balloon was flat. Lidocaine jelly was injected using a Urojet into the ostomy. A 20 [place] right angled gastrostomy tube was placed with the proximal part of the tube mcnamara marked at 6.5 on the tube. Gastric contents refluxed up the tube. - Vital Signs Vital signs: Temp Pulse Resp BP Pulse Ox 98.3 F 72 16 98/83 L 99 10/23/19 14:23 10/23/19 14:23 10/23/19 14:23 10/23/19 14:23 10/23/19 14:23 Discharge - Discharge Clinical Impression: Dislodged gastrostomy tube Condition: Stable Disposition: HOME, SELF-CARE Additional Instructions: Follow-up with Dr. Villagran as needed. RETURN TO THE EMERGENCY ROOM IF ANY NEW OR WORSENING SYMPTOMS. Referrals: MARYAM KEYES MD [Primary Care Provider] - Follow up as needed SEVERINO VILLAGRAN MD [ACTIVE STAFF] - Follow up as needed I personally performed the services described in the documentation, reviewed and edited the documentation which was dictated to the scribe in my presence, and it accurately records my words and actions.
[2019-10-23 14:25] VITALS: BP 98/83
== END 2019-10-23 14:26 | disposition home or self-care (01) ==
LOC: ER 09:19
DX: K94.23 Gastrostomy malfunction (principal); Z88.0 Allergy status to penicillin; Z88.2 Allergy status to sulfonamides; I10 Essential (primary) hypertension; E11.9 Type 2 diabetes mellitus without complications
CPT/HCPCS: 99282; A9270; J3490